=== PATIENT | male | born 1950 | race Caucasian/White ===

== ENCOUNTER 2019-09-01 19:32 | Emergency (ER) | payer MEDICARE ==
[~2019-09-01] VITALS: Ht 185.4 cm; Wt 120.5 kg
[2019-09-01 19:34] VITALS: TEMP 97.9
[2019-09-01] MEDS ORDERED: HYZAAR 25 MG-101 TAB (19:39)
[2019-09-01 20:01] LABS: HEMATOCRIT 45.7 % (42.0-52.0); HEMOGLOBIN 15.8 g/dl (13.5-18.0); MEAN CELL VOLUME 89 fl (80.0-100.0); MEAN CORPUSCULAR HEMOGLOBIN 31 pg (27.0-31.0); MEAN CORPUSCULAR HGB CONC 35 g/dl (33.0-37.0); MEAN PLATELET VOLUME 11.3 fl (7.4-10.4); PLATELET COUNT 212 K/mm3 (130-400); RED BLOOD COUNT 5.16 M/mm3 (4.20-5.60); REDCELL DISTRIBUTION WIDTH-CV 13.1 % (11.5-14.5)
[2019-09-01 20:06] LABS: PROTHROMBIN TIME 11.5 SECONDS (9.7-12.8)
[2019-09-01 20:16] LABS: ALANINE AMINOTRANSFERASE 26 U/L (21-72); ALKALINE PHOSPHATASE 70 U/L (50-136); ANION GAP 12 mmol/L (7-16); AST,SGOT 26 U/L (15-37); BILIRUBIN,TOTAL 1.4 mg/dL (0.0-1.0); BLOOD UREA NITROGEN 22 mg/dL (9-20); CALCIUM 9.1 mg/dL (8.4-10.2); CARBON DIOXIDE 25 mmol/L (22-30); CHLORIDE 103 mmol/L (98-107); CREATINE KINASE 93 U/L (55-170); CREATININE, serum 1.46 (0.66-1.25); GLUCOSE 121 mg/dL (74-106); POTASSIUM 3.4 mmol/L (3.4-5.0); SODIUM 139 mmol/L (137-145)
[2019-09-01 20:27] LABS: TROPONIN-I < 0.012 ng/mL (0.000-0.035)
[2019-09-01 20:43] LABS: EOSINOPHIL 2 % (0-4); LYMPHOCYTE 51 % (20.0-51.0); NEUTROPHILS 42 % (42.0-75.2)
[2019-09-01 20:44] LABS: PLATELET ESTIMATE NORMAL (NORMAL)
[2019-09-01 22:40] VITALS: BP 115/73; PULSE 59
== END 2019-09-01 23:45 | disposition home or self-care (01) ==
LOC: COL.ER 19:32
PROVIDERS: Emergency Medicine
DX: R55 Syncope and collapse (principal); I10 Essential (primary) hypertension
CPT/HCPCS: J7030